=== PATIENT | male | born 1960 | race Caucasian/White ===

== ENCOUNTER 2018-10-25 11:19 | Emergency (ER) | payer SELFPAY ==
[~2018-10-25] VITALS: Ht 182.9 cm; Wt 89.6 kg
[2018-10-25 11:22] VITALS: BP 155/113; PULSE 89; RESP 19; Ht 182.9 cm; Wt 89.6 kg
[2018-10-25] MEDS ORDERED: LIDOCAINE 1% (MPF) 5 ML VIAL INFIL ONE (12:30)
[2018-10-25] MEDS ORDERED: CEPH-443 PO (12:45)
[2018-10-25] MEDS ORDERED: SULF1TAB31 PO (12:45)
[2018-10-25] MEDS ORDERED: ACET-141 PO (12:45)
--- NOTE | 2018-10-25 12:47 | ERD ---
ER Documentation Chief Complaint Chief Complaint LEFT MIDDLE FINGER PAIN/SWELLING HPI 57-year-old male presents for left middle finger pain and swelling x2 days. He states that he was doing roses and poked himself with a thorn. The pain and swelling has been increasing since. Pain is noted to be 7 out of 10. Pain is nonradiating. Described as sharp. Denies any fevers. Denies chest pain or shortness of breath. Denies significant past medical history. No other modifying factors noted. No treatments tried at home ROS All systems reviewed and are negative except as per history of present illness. Medications Home Meds Active Scripts Acetaminophen* (Acetaminophen*) 500 MG Extra Strength Tablet, 500 MG PO Q4H PRN for PAIN AND OR ELEVATED TEMP, #30 TAB Prov:HUMBERTO ARMIJO DO 10/25/18 Cephalexin* (Keflex*) 500 Mg Capsule, 500 MG PO TID for finger infection for 7 Days, #21 CAP Prov:HUMBERTO ARMIJO 10/25/18 Sulfamethoxazole/Trimethoprim* (Bactrim Ds* Tablet) 1 Each Tablet, 1 TAB PO BID for abscess for 7 Days, #14 TAB Prov:HUMBERTO ARMIJO DO 10/25/18 Allergies Allergies: Coded Allergies: No Known Allergy (Unverified , 10/25/18) PMhx/Soc Medical and Surgical Hx: pt denies Medical Hx, pt denies Surgical Hx FmHx Family History: No coronary disease Physical Exam Vitals Vital Signs Date Temp Pulse Resp B/P (MAP) Pulse Ox O2 O2 Flow FiO2 Time Delivery Rate 10/25/18 97.9 89 19 155/113 97 11:22 (127) Physical Exam Const: No acute distress Neck: Full range of motion. No meningismus. Resp: Clear to auscultation bilaterally Cardio: Regular rate and rhythm, no murmurs Skin: Left third finger distal area of fluctuance with erythema Ext: No cyanosis, or edema Neur: Awake and alert Psych: Normal Mood and Affect Results 24 hrs Current Medications Medications Dose Sig/Elizabeth Start Time Status Last (Trade) Ordered Route PRN Stop Time Admin Dose Reason Admin Lidocaine 5 ml ONCE ONCE 10/25/18 DC (Xylocaine INFIL 12:30 1% (Mpf)) 10/25/18 12:31 Procedures/MDM Abscess Incision and Drainage with irrigation by me: Location: Left third digit distal Anesthesia: [Local 1% Lidocaine without epinephrine] Technique: [Irrigated. Disrupted loculations w/ instrumentation] Packing: [None] Complications: [Neurovascularly intact post procedure] 48 hour wound check. Scar minimization instructions given. Patient's skin symptoms have stabilized while they have been evaluated in the department and are appropriate for outpatient care and work up. Exam and w/u not consistent w/ sepsis, deep space infection, or foreign body. Medical Decision Making: Differential diagnosis includes but not limited to left third finger distal abscess, cellulitis, dermatitis Patient appeared well on physical exam. Examination consistent with a left third finger abscess Incision and drainage was done, see procedure note above Prescription(s): Patient given prescription for supportive medication(s) and antibiotics. Patient advised to return to the ER in 48 hours for a wound check. Patient advised to follow up with PCP in 1-2 days. Patient advised to return to ED for new or worsening symptoms. Patient stable on discharge from the ED. Disclaimer: Inadvertent spelling and grammatical errors are likely due to EHR/dictation software use and do not reflect on the overall quality of patient care. Also, please note that the electronic time recorded on this note does not necessarily reflect the actual time of the patient encounter. Departure Diagnosis: Primary Impression: Abscess of finger Condition: Fair Patient Instructions: Wound Care, Abscess Drainage Referrals: [facility] YOU HAVE RECEIVED A MEDICAL SCREENING EXAM AND THE RESULTS INDICATE THAT YOU DO NOT HAVE A CONDITION THAT REQUIRES URGENT TREATMENT IN THE EMERGENCY DEPARTMENT. FURTHER EVALUATION AND TREATMENT OF YOUR CONDITION CAN WAIT UNTIL YOU ARE SEEN IN YOUR DOCTORS OFFICE WITHIN THE NEXT 1-2 DAYS. IT IS YOUR RESPONSIBILITY TO MAKE AN APPOINTMENT FOR FOLOW-UP CARE. IF YOU HAVE A PRIMARY DOCTOR --you should call your primary doctor and schedule an appointment IF YOU DO NOT HAVE A PRIMARY DOCTOR YOU CAN CALL OUR PHYSICIAN REFERRAL HOTLINE AT IF YOU CAN NOT AFFORD TO SEE A PHYSICIAN YOU CAN CHOSE FROM THE FOLLOWING [facility] [id number] [facility] [address] [facility] [address] [facility] [address] [facility] [id number] [facility] [facility] [address] Additional Instructions: Call your primary care doctor TOMORROW for an appointment during the next 1-2 days.See the doctor sooner or return here if your condition worsens before your appointment time. Return to ER in 48 hours for wound check. HUMBERTO ARMIJO DO October 25, 2018 12:47
== END 2018-10-25 14:06 | disposition left against medical advice (07) ==
LOC: FTE 11:19
DX: L02.512 Cutaneous abscess of left hand (principal)